=== PATIENT | male | born 1990 | race Caucasian/White ===

== ENCOUNTER 2023-04-05 11:13 | Emergency (ER) | payer OTHER ==
[2023-04-05] MEDS: Lidocaine 1% 10 ML MDV INJECT ONE (13:00)
== END 2023-04-05 13:45 | disposition home or self-care (01) ==
LOC: JD.ED 11:13
DX: S62.634B Displaced fracture of distal phalanx of right ring finger, initial encounter for open fracture (principal); F17.210 Nicotine dependence, cigarettes, uncomplicated; Z88.0 Allergy status to penicillin; W23.0XXA Caught, crushed, jammed, or pinched between moving objects, initial encounter
CPT/HCPCS: 12002; 73140-26-F8; 73140-F8; 99283; J3490

== ENCOUNTER 2024-11-11 06:00 | Day surgery (SDC) | payer BC ==
[~2024-11-11 06:00] MED LIST: Sodium Chloride 0.9% 10 ML Syringe FLUSH PRN; Sodium Chloride 0.9% 10 ML Syringe FLUSH SCH
[2024-11-11] MEDS: Lactated Ringers 1,000 ML IV SCH (06:25)
[2024-11-11] MEDS: Clindamycin Phosphate in D5W 900 MG in Premix Bag 1 BAG IV ONE (06:33)
[2024-11-11] MEDS ORDERED: Midazolam 1 MG/ML 2 ML SDV ONE (06:39)
[2024-11-11] MEDS ORDERED: Ketorolac 30 MG/ML SDV ONE (06:39)
[2024-11-11] MEDS ORDERED: Glycopyrrolate 0.2 MG/ML 2 ML SDV ONE (06:39)
[2024-11-11] MEDS ORDERED: Ketamine HCL/NACL, ISO-OSM 50 MG/5 ML Syringe ONE (06:39)
[2024-11-11] MEDS ORDERED: propofoL 500 MG/50 ML 50 ML ONE (06:39)
[2024-11-11] MEDS ORDERED: fentaNYL 100 MCG/2 ML SDV ONE (06:39)
[2024-11-11] MEDS ORDERED: dexmedeTOMIDine HCl 200 MCG/2 ML SDV ONE (06:40)
[2024-11-11] MEDS ORDERED: fentaNYL 100 MCG/2 ML SDV IVPUSH PRN (07:25)
[2024-11-11] MEDS ORDERED: Propofol 200 MG/20 ML SDV ONE (07:33)
[2024-11-11] MEDS: EPINEPHrine 1 MG/ML SDV ONE (07:40)
[2024-11-11] MEDS: Acetaminophen/HYDROcodone 325-5 MG Tab PO PRN (10:56)
[2024-11-11] MEDS: Ondansetron 4 MG/2 ML SDV IVPUSH PRN (10:56)
== END 2024-11-11 10:45 | disposition home or self-care (01) ==
LOC: JD.SDS 06:00
PROVIDERS: ATTEND Orthopaedic Surgery
DX: S83.212A Bucket-handle tear of medial meniscus, current injury, left knee, initial encounter (principal); Z88.0 Allergy status to penicillin; Z87.891 Personal history of nicotine dependence; Z79.82 Long term (current) use of aspirin; Z79.899 Other long term (current) drug therapy
CPT/HCPCS: 29881; A9270; J0169; J0665; J0736; J1596; J1885; J2003; J2250; J2405; J2704; J3010; J7120; 01400; J3490